=== PATIENT | female | born 1950 | race African-American/Black ===

== ENCOUNTER 2017-02-20 12:18 | Day surgery (SDC) | payer OTHER ==
[2017-02-20] MEDS ORDERED: KENALOG INJ 40 MG ONE (12:28)
[2017-02-20] MEDS ORDERED: XYLOCAINE 1 % (PLAIN) ONE (12:28)
[2017-02-20] MEDS ORDERED: MARCAINE 0.25% WITH EPI IJ ONE (12:29)
[2017-02-20] MEDS ORDERED: MARCAINE/EPINEPHRINE ONE (12:44)
--- NOTE | 2017-02-20 12:48 | DR.H&P ---
H&P - History & Physical for Day of: H&P Date: 02/20/17 - Chief Complaint Chief Complaint: my back has been hurting for years. sometimes the pain goes to my left foot, but moslty its in my back - Allergies Allergies/Adverse Reactions: Allergies Allergy/AdvReac Type Severity Reaction Status Date / Time Penicillin G Allergy Mild Verified 02/20/17 12:24 - History of Present Illness History of Present Illness: pt reports longstanding h/o above cc. has worsened in the past year. states left leg a little weaker than right. pain is relieved upon supination and returns upon awkening in the morning. - Social History Does patient currently use any type of tobacco product: No Have you used tobacco products in the last 12 months: No Type of Tobacco Use: None Does any household member use tobacco: No Alcohol Use: None Drug Use: None - Medications Home Medications: Allopurinol [ZYLOPRIM tab 100 mg *] 200 mg PO DAILY 02/20/17 [History Confirmed 02/20/17] Atorvastatin Calcium [Lipitor] 10 mg PO DAILY 02/20/17 [History Confirmed ] Estradiol 0.5 mg PO 02/20/17 [History] Gabapentin 300 mg PO TID 02/20/17 [History Confirmed 02/20/17] Gemfibrozil 600 mg PO BID 02/20/17 [History Confirmed 02/20/17] Insulin Glargine (Lantus) [LANTUS INSULIN 10 ML VIAL *] 22 units SC HS 02/20/17 [History Confirmed 02/20/17] Levothyroxine Sodium [Levo-T] 88 mcg PO DAILY 02/20/17 [History Confirmed ] Losartan Potassium & Hydrochlo [Hyzaar 100-25 mg] 1 mg PO DAILY 02/20/17 [ History Confirmed 02/20/17] Repaglinide 1 mg PO BID 02/20/17 [History Confirmed 02/20/17] - Review of Systems Respiratory: No Symptoms Reported Cardiovascular: No Symptoms Reported Musculoskeletal: Back Pain (see below) - Physical Exam Vital Signs: Temperature 97.7 F Pulse Rate 88 Respiratory Rate 18 Blood Pressure 157/79 O2 Sat by Pulse Oximetry 96 Skin: Normal Musculoskeletal: Back:Thoracic (no pain on palpation. no stepoff/deformity. no pain on tilt/rotaion), Back:Lumbar (mild pain on palpation over L4-S1 region. no stepoff/deformity. slr and patricks pos on left), Back:Midline Mood Description: Calm Affect: Normal - Assessment/Plan (1) Facet arthritis of lumbar region Status: Acute Plan: facet joint injection Lumnar 4-5 and lumbar5-S1
[2017-02-20 13:32] VITALS: BP 148/74
== END 2017-02-20 13:27 | disposition home or self-care (01) ==
LOC: SURG1 12:18
PROVIDERS: ATTEND Specialist
PROC: BR16ZZZ Fluoroscopy of Lumbar Facet Joint(s) (ICD-10-PCS; principal; 2017-02-20 12:45)
PROC: 3E0U33Z Introduction of Anti-inflammatory into Joints, Percutaneous Approach (ICD-10-PCS; principal; 2017-02-20 12:45)
PROC: 3E0U3BZ Introduction of Anesthetic Agent into Joints, Percutaneous Approach (ICD-10-PCS; principal; 2017-02-20 12:45)
DX: M46.86 Other specified inflammatory spondylopathies, lumbar region (principal)
CPT/HCPCS: 64493; 64494; 76000; S0020; J2001; J3301

== ENCOUNTER 2018-01-29 12:08 | Day surgery (SDC) | payer OTHER ==
--- NOTE | 2018-01-29 12:49 | DR.UPDATE ---
H&P Update History and Physical Update: History and Physical reviewed and patient examined. Changes noted: NO Yes with the following:Agree with H&P from Dr Raya with the imanwing aditions. Pt had facet injections last year with good results. pain is essentially the same with some on the right as well. will repeat left facet injections at L4-5, L5-S1 as well as right side at same levels.
[2018-01-29] MEDS: XYLOCAINE 1 % (PLAIN) ONE ×2 (12:56→13:05)
[2018-01-29] MEDS: KENALOG INJ 40 MG IM ONE ×3 (13:02→13:09)
[2018-01-29] MEDS ORDERED: MARCAINE/EPINEPHRINE IJ ONE ×3 (13:02→13:09)
[2018-01-29 14:47] VITALS: BP 178/81
== END 2018-01-29 13:35 | disposition home or self-care (01) | DRG 552 ==
LOC: SURG1 12:08
PROVIDERS: ATTEND Orthopaedic Surgery
PROC: 3E0U3BZ Introduction of Anesthetic Agent into Joints, Percutaneous Approach (ICD-10-PCS; 2018-01-29)
PROC: 3E0U33Z Introduction of Anti-inflammatory into Joints, Percutaneous Approach (ICD-10-PCS; principal; 2018-01-29 12:00)
DX: M51.36 Other intervertebral disc degeneration, lumbar region (principal); M46.86 Other specified inflammatory spondylopathies, lumbar region; M47.817 Spondylosis without myelopathy or radiculopathy, lumbosacral region
CPT/HCPCS: 64493; 64494; 76000; S0020; J2001; J3301